=== PATIENT | male | born 1975 | race American Indian/Alaskan Native ===

== ENCOUNTER 2024-02-14 06:58 | Day surgery (SDC) | payer BC, OTHER ==
[~2024-02-14] VITALS: Ht 177.8 cm; Wt 113.6 kg
[~2024-02-14 06:58] MED LIST: ALLEGRA ALLERGY60 MG PO; CEPHALEXIN500 MG PO; MIDAZOLAM HCL 5 MG/5 ML VIAL IV PRN; fentaNYL citrate 100 MCG/2 ML VIAL IV PRN
[2024-02-14] MEDS ORDERED: LACTATED RINGER'S 1,000 ML IV SCH (07:00)
[2024-02-14] MEDS ORDERED: LIDOCAINE HCL 1% 5 ML SDV INJ ONE (07:00)
[2024-02-14] MEDS ORDERED: IBLOOD GLUCOSE TEST STRIP 1 EA TEST VI PRN (07:00)
[2024-02-14 07:12] VITALS: BP 138/80
[2024-02-14] MEDS ORDERED: propofoL 200 MG/20 ML VIAL ONE (08:54)
[2024-02-14] MEDS ORDERED: LIDOCAINE HCL 2% 5 ML SDV ONE (08:55)
[2024-02-14 09:32] VITALS: BP 128/92
--- NOTE | 2024-02-14 17:01 | OR ---
[facility] [address] [place], [place] [address] Signed DATE OF OPERATION: 02/14/2024 SURGEON: Cristiano Bishop MD PREOPERATIVE DIAGNOSIS: Mother with a history of colonic polyps. POSTOPERATIVE DIAGNOSIS: Minimal internal hemorrhoids. PROCEDURE: Colonoscopy without biopsy. ESTIMATED BLOOD LOSS: None. INDICATIONS: Guillermo is a 48-year-old obese gentleman, asked to see me for his initial screening colonoscopy. He has no lower GI complaints. He tells me his mother had colonic polyps. Today, he specified, but she did not have colonic polyps until about age 79 on her last colonoscopy. In the office, I gave him a pamphlet on colonoscopy. We had reviewed the nature of the test. There is risk including, but not limited to gas bloating, crampy abdominal pain, bleeding, perforation requiring surgery, and missed diagnosis. We also reviewed the written instructions for the bowel prep line by line. Also because of his rather severe sleep apnea, his full round face, heavy neck, chest and abdomen. He required monitored anesthesia care with propofol infusion. That worked out very well. Also, he has rather significant anxiety. It also helped in that regard. He had expressed understanding and wished to proceed. PROCEDURE NOTE: Guillermo was taken into our endoscopy suite and placed in the left lateral decubitus position. He was given monitored anesthesia care propofol infusion per our nurse preparer making department. A digital rectal exam was performed and this was unremarkable. There were no external hemorrhoids. Good sphincter tone. His prostate was unremarkable. There were no masses. The adult colonoscope was introduced and advanced all around into the cecum under direct visualization of camera without difficulty. His prep was quite excellent. We had to suction out little bit of fluid in the cecum. There was no pathology found throughout his entire colon. We took several pictures throughout for photodocumentation. We could easily identify his ileocecal valve. Once in the rectum, the scope was retroflexed, he has just minimal internal hemorrhoid tissue. After this, Electronically Signed By: CRISTIANO BISHOP MD 02/14/24 170 PATIENT NAME: GUILLERMO BARON OPERATIVE REPORT DATE OF : 73 REPORT #: [id number] PHYSICIAN: CRISTIANO BISHOP MD PCP: ROSA MONAE REPORT IS CONFIDENTIAL AND NOT TO BE RELEASED WITHOUT AUTHORIZATION [facility] [address] [place] [id number] Signed the gas was suctioned out and colonoscope removed. Guillermo tolerated procedure quite well. RECOMMENDATIONS: Guillermo can follow up in 5 years for repeat colonoscopy if indeed his mother had colonic polyps. MD MELINA Cortes/MODL /[id number] cc: Rosa Bishop MD Copies: ROSA MONAE ANDREW L MD ~ Electronically Signed By: CRISTIANO BISHOP MD 02/14/24 170 PATIENT NAME: GUILLERMO BARON OPERATIVE REPORT DATE OF : 73 REPORT #: [id number] PHYSICIAN: CRISTIANO BISHOP MD PCP: ROSA MONAE REPORT IS CONFIDENTIAL AND NOT TO BE RELEASED WITHOUT AUTHORIZATION
== END 2024-02-14 09:40 ==
LOC: DS 06:58
PROVIDERS: ATTEND Colon & Rectal Surgery
PROC: 0DJD8ZZ Inspection of Lower Intestinal Tract, Via Natural or Artificial Opening Endoscopic (ICD-10-PCS; principal; 2024-02-14 08:45)
DX: Z12.11 Encounter for screening for malignant neoplasm of colon (principal); K64.8 Other hemorrhoids; G47.33 Obstructive sleep apnea (adult) (pediatric); F41.9 Anxiety disorder, unspecified; J30.2 Other seasonal allergic rhinitis; E66.9 Obesity, unspecified; Z68.39 Body mass index [BMI] 39.0-39.9, adult; Z79.899 Other long term (current) drug therapy
CPT/HCPCS: J2001; J2704; J7121

== ENCOUNTER 2025-02-04 16:55 | Emergency (ER) | payer BC, OTHER ==
[~2025-02-04] VITALS: Ht 177.8 cm; Wt 118.0 kg
[~2025-02-04 16:55] MED LIST changes: -MIDAZOLAM HCL 5 MG/5 ML VIAL IV PRN; -fentaNYL citrate 100 MCG/2 ML VIAL IV PRN
[2025-02-04] MEDS ORDERED: HYDROCODONE BIT/ACETAMINOPHEN 5/325 MG 1 TAB HOME.PACK PO PRN (21:15)
[2025-02-04] MEDS ORDERED: HYDROCODON-ACE1 EA10 PO (21:20)
[2025-02-04 21:48] VITALS: BP 151/88
== END 2025-02-04 21:45 | disposition home or self-care (01) ==
LOC: ED 16:55
DX: R22.42 Localized swelling, mass and lump, left lower limb (principal); Z88.0 Allergy status to penicillin
CPT/HCPCS: 76882; 99283-25; A9270